=== PATIENT | male | born 1940 | race Caucasian/White ===

== ENCOUNTER 2019-05-24 13:40 | Inpatient (IN) | payer MEDICARE, OTHER ==
[~2019-05-24] VITALS: Ht 172.7 cm; Wt 70.3 kg
--- NOTE | 2019-05-24 14:21 | NUR ---
Assumed care of patient. C/O RUE weakness x 1 week. 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 Dysarthria. Able to identify watch, eye glasses, and pen. Sister at bedside said he hasn't been himself since xmas. 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 Will continue to monitor.
[2019-05-24 14:50] LABS: BASOPHILS # (AUTO) 0.02 x10^3/uL (0-0.1); BASOPHILS % (AUTO) 0 % (0-1); EOSINOPHILS # (AUTO) 0.03 x10^3/uL (0-0.4); EOSINOPHILS % (AUTO) 1 % (1-7); LYMPHOCYTES # (AUTO) 1.02 x10^3/uL (1-3.4); LYMPHOCYTES % (AUTO) 18 % (22-44); MD NO; MEAN CORPUSCULAR HEMOGLOBIN 32.6 pg (27.5-34.5); MEAN CORPUSCULAR VOLUME 98.7 fL (81-97); MEAN PLATELET VOLUME 7.9 fL (7.4-10.4); MONOCYTES # (AUTO) 0.56 x10^3/uL (0.2-0.8); MONOCYTES % (AUTO) 10 % (2-9); NEUTROPHILS # (AUTO) 4.01 x10^3/uL (1.8-6.8); NEUTROPHILS % (AUTO) 71 % (42-75); PLATELET COUNT 165 x10^3/uL (130-400); RED CELL DISTRIBUTION WIDTH 14.9 % (9.4-14.8)
[2019-05-24 14:57] LABS: INTERNATIONAL NORMALIZED RATIO 1.16 (0.93-1.1); PROTHROMBIN TIME 12.3 Seconds (9.6-11.5)
[2019-05-24 14:59] LABS: ALANINE AMINOTRANSFERASE 27 U/L (12-78); ALBUMIN 4.1 g/dL (3.4-5.0); ANION GAP 7 mmol/L (5-15); CHLORIDE 111 mmol/L (98-107); CREATININE 1.18 mg/dL (0.7-1.3)
[2019-05-24 15:01] LABS: ALKALINE PHOSPHATASE 52 U/L (45-117); BILIRUBIN,TOTAL 1.6 mg/dL (0.2-1.0)
--- NOTE | 2019-05-24 15:08 | NUR ---
BREAK RN: PT UPRIGHT ON GURNEY AWAKE & CALM, ATTEMPTING TO PROVIDED UA SAMPLE, RESPONDS APPROP TO STAFF, NAD, COMFORT MEASURES PROVIDED, AT BS, CALL LIGHT WITHIN REACH.
--- NOTE | 2019-05-24 15:32 | NUR ---
Attempted to collect UA. Patient unable to urinate.
[2019-05-24] MEDS ORDERED: BISACODYL 10 MG SUPP PR PRN (16:00)
[2019-05-24] MEDS ORDERED: OXYcodone IR 5MG TABLET PO PRN (16:00)
[2019-05-24] MEDS ORDERED: SODIUM CHLORIDE 0.9% 1,000 ML IV ONE (16:00)
[2019-05-24] MEDS ORDERED: morphine SULFATE 10 MG/ML, 1ML IVPush PRN (16:00)
[2019-05-24] MEDS ORDERED: ENALAPRILAT 1.25 MG/ML, 2ML IVPush PRN (16:00)
[2019-05-24] MEDS ORDERED: LABETALOL 5MG/ML, 20ML IVPush PRN (16:00)
[2019-05-24] MEDS ORDERED: POLYETHYLENE GLYCOL 17 GM PACKET PO PRN (16:00)
[2019-05-24] MEDS ORDERED: LEVETIRACETAM 1,000 MG in SODIUM CHLORIDE 0.9% 100 ML IV ONE (16:00)
[2019-05-24] MEDS ORDERED: ONDANSETRON 2MG/ML, 2ML IVPush PRN (16:00)
--- NOTE | 2019-05-24 16:27 | NUR ---
Neurosurgery at bedside. Sobia started.
[2019-05-24] MEDS: LEVETIRACETAM 500 MG in SODIUM CHLORIDE 0.9% 100 ML IV SCH (16:32)
--- NOTE | 2019-05-24 16:33 | NUR ---
Keppra dose verified with MD Mars (neurosurery).
[2019-05-24] MEDS: SODIUM CHLORIDE 0.9% 1,000 ML IV SCH (17:25)
--- NOTE | 2019-05-24 17:52 | NUR ---
Brother in law at bedside. Patient and brother in law demonstrate understanding of the plan. No needs at this time.
--- NOTE | 2019-05-24 18:02 | NUR ---
Iftikhar (brother in law) [phone].
--- NOTE | 2019-05-24 19:25 | NUR ---
Girlfriend at bedside. No needs at this time.
--- NOTE | 2019-05-24 19:45 | NUR ---
Transferred to CCU.
[2019-05-24 20:04] VITALS: BP 120/65
[2019-05-25] MEDS: SODIUM CHLORIDE 0.9% 1,000 ML IV SCH ×2 (03:00→20:43)
[2019-05-25 04:00] VITALS: BP 108/61
[2019-05-25] MEDS: LEVETIRACETAM 500 MG in SODIUM CHLORIDE 0.9% 100 ML IV SCH (04:22)
[2019-05-25 04:50] LABS: BASOPHILS # (AUTO) 0.01 x10^3/uL (0-0.1); BASOPHILS % (AUTO) 0 % (0-1); EOSINOPHILS # (AUTO) 0.04 x10^3/uL (0-0.4); EOSINOPHILS % (AUTO) 1 % (1-7); LYMPHOCYTES # (AUTO) 1.22 x10^3/uL (1-3.4); LYMPHOCYTES % (AUTO) 26 % (22-44); MD NO; MEAN CORPUSCULAR HEMOGLOBIN 32.6 pg (27.5-34.5); MEAN CORPUSCULAR HGB CONC 33.6 g/dL (33.2-36.2); MEAN CORPUSCULAR VOLUME 96.8 fL (81-97); MEAN PLATELET VOLUME 8.4 fL (7.4-10.4); MONOCYTES # (AUTO) 0.59 x10^3/uL (0.2-0.8); MONOCYTES % (AUTO) 13 % (2-9); NEUTROPHILS # (AUTO) 2.79 x10^3/uL (1.8-6.8); NEUTROPHILS % (AUTO) 60 % (42-75); PLATELET COUNT 149 x10^3/uL (130-400); RED BLOOD COUNT 4.41 x10^6/uL (4.38-5.82); RED CELL DISTRIBUTION WIDTH 14.9 % (9.4-14.8)
[2019-05-25 04:58] LABS: ALBUMIN 3.4 g/dL (3.4-5.0); ANION GAP 10 mmol/L (5-15); CALCIUM 7.7 mg/dL (8.5-10.1); CHLORIDE 114 mmol/L (98-107)
[2019-05-25 05:02] LABS: ALANINE AMINOTRANSFERASE 21 U/L (12-78); ALKALINE PHOSPHATASE 47 U/L (45-117); BILIRUBIN,TOTAL 1.7 mg/dL (0.2-1.0); CHOL/HDL RATIO 3.7; CHOLESTEROL, TOTAL 70 mg/dL (140-239); CREATININE 0.93 mg/dL (0.7-1.3); HDL CHOL % 27 % (26-37); HDL CHOLESTEROL (DIRECT) 19 mg/dL (40-60); LDL CHOLESTEROL,CALCULATED 40 mg/dL (54-169); LDL/HDL RATIO 2.1 (0.5-3.0); TOTAL PROTEIN 5.9 g/dL (6.4-8.2); TRIGLYCERIDES 54 mg/dL (50-200); VLDL CHOLESTEROL 11 mg/dL (0-25)
[2019-05-25] MEDS ORDERED: THROMBIN 5,000 UNIT VIAL TP ONE (06:21)
[2019-05-25] MEDS ORDERED: EPINEPHRINE 1 MG/ML, 1ML ONE (06:21)
[2019-05-25] MEDS ORDERED: BUPIVACAINE/PF 0.5% ONE (06:21)
[2019-05-25] MEDS ORDERED: BACITRACIN 50,000 UNIT ONE (06:21)
[2019-05-25] MEDS ORDERED: PHENYLEPHRINE 10 MG/ML ONE (06:29)
[2019-05-25] MEDS ORDERED: FENTANYL PF 250 MCG/5ML ONE (06:32)
[2019-05-25] MEDS ORDERED: MANNITOL PMX 20% 0 ML ONE (06:50)
[2019-05-25] MEDS ORDERED: FENTANYL PF 100 MCG/2ML IV PRN (07:00)
[2019-05-25] MEDS ORDERED: OXYcodone 5 MG/5 ML ORAL.SOL UDC PO PRN (07:00)
[2019-05-25] MEDS ORDERED: ONDANSETRON 2MG/ML, 2ML IV PRN (07:00)
[2019-05-25] MEDS ORDERED: MEPERIDINE/PF 25MG/ML,1ML IVPush PRN (07:00)
[2019-05-25] MEDS ORDERED: LABETALOL 5MG/ML, 20ML IV PRN (07:00)
[2019-05-25] MEDS ORDERED: HYDROmorphone 2 MG/ML, 1ML IVPush PRN (07:00)
[2019-05-25] MEDS ORDERED: MORPHINE SULFATE 4 MG/ML, 1ML IVPush PRN (07:00)
[2019-05-25] MEDS ORDERED: hydrALAzine 20 MG/ML, 1ML IV PRN (07:00)
[2019-05-25] MEDS ORDERED: GLYCOPYRROLATE 0.2MG/1ML, 5ML ONE (07:34)
[2019-05-25] MEDS ORDERED: NEOSTIGMINE 1 MG/ML, 10ML ONE (07:34)
[2019-05-25] MEDS ORDERED: PROPOFOL 10 MG/ML, 20ML ONE (07:34)
[2019-05-25] MEDS ORDERED: EPHEDRINE 50 MG/ML, 1ML ONE (07:34)
[2019-05-25] MEDS ORDERED: CEFAZOLIN 1,000 MG ONE (07:34)
[2019-05-25] MEDS ORDERED: ROCURONIUM 10MG/ML,5ML ONE (07:34)
[2019-05-25] MEDS ORDERED: BACITRACIN OINT 500U/GM, 15 GM ONE (08:22)
[2019-05-25] MEDS ORDERED: HOLD MEDICATION MC PRN (08:30)
[2019-05-25] MEDS: SENNA/DOCUSATE TABLET PO SCH (09:00)
[2019-05-25] MEDS ORDERED: LEVETIRACETAM 500 MG in SODIUM CHLORIDE 0.9% 100 ML IV SCH (10:30)
[2019-05-25] MEDS: LEVETIRACETAM 500 MG TABLET PO SCH (14:16)
[2019-05-25 14:40] LABS: MICROSCOPIC NOT IND
[2019-05-25 14:45] LABS: CULTURE INDICATED? NO
[2019-05-26 04:00] VITALS: BP 136/69
[2019-05-26] MEDS: LEVETIRACETAM 500 MG TABLET PO SCH ×2 (05:20→16:07)
[2019-05-26] MEDS: SODIUM CHLORIDE 0.9% 1,000 ML IV SCH ×2 (07:00→17:00)
[2019-05-26] MEDS: SENNA/DOCUSATE TABLET PO SCH (14:20)
[2019-05-26] MEDS ORDERED: ENALAPRILAT 1.25 MG/ML, 2ML IVPush PRN (19:30)
[2019-05-26] MEDS ORDERED: LABETALOL 5MG/ML, 20ML IVPush PRN (19:30)
[2019-05-27 04:00] VITALS: BP 137/76
[2019-05-27 04:28] LABS: BASOPHILS # (AUTO) 0.02 x10^3/uL (0-0.1); BASOPHILS % (AUTO) 0 % (0-1); EOSINOPHILS # (AUTO) 0.04 x10^3/uL (0-0.4); EOSINOPHILS % (AUTO) 1 % (1-7); LYMPHOCYTES # (AUTO) 1.07 x10^3/uL (1-3.4); LYMPHOCYTES % (AUTO) 16 % (22-44); MD NO; MEAN CORPUSCULAR HEMOGLOBIN 32.9 pg (27.5-34.5); MEAN CORPUSCULAR HGB CONC 34.5 g/dL (33.2-36.2); MEAN CORPUSCULAR VOLUME 95.3 fL (81-97); MEAN PLATELET VOLUME 8.4 fL (7.4-10.4); MONOCYTES # (AUTO) 0.65 x10^3/uL (0.2-0.8); MONOCYTES % (AUTO) 10 % (2-9); NEUTROPHILS # (AUTO) 4.76 x10^3/uL (1.8-6.8); NEUTROPHILS % (AUTO) 73 % (42-75); PLATELET COUNT 137 x10^3/uL (130-400); RED BLOOD COUNT 4.22 x10^6/uL (4.38-5.82); RED CELL DISTRIBUTION WIDTH 14.7 % (9.4-14.8)
[2019-05-27] MEDS: LEVETIRACETAM 500 MG TABLET PO SCH ×2 (04:32→16:21)
[2019-05-27] MEDS: ACETAMINOPHEN 325 MG TABLET PO PRN ×2 (04:32→22:36)
[2019-05-27 04:37] LABS: ALBUMIN 3.3 g/dL (3.4-5.0); ANION GAP 7 mmol/L (5-15); CALCIUM 8.1 mg/dL (8.5-10.1); CHLORIDE 110 mmol/L (98-107)
[2019-05-27 04:41] LABS: ALANINE AMINOTRANSFERASE 18 U/L (12-78); ALKALINE PHOSPHATASE 44 U/L (45-117); BILIRUBIN,TOTAL 1.3 mg/dL (0.2-1.0); CREATININE 0.82 mg/dL (0.7-1.3)
[2019-05-27 05:34] VITALS: BP 123/73
[2019-05-27 09:40] VITALS: BP 113/70
[2019-05-27] MEDS: SENNA/DOCUSATE TABLET PO SCH (09:45)
[2019-05-27 11:31] VITALS: BP 100/65
[2019-05-27 16:22] VITALS: BP 104/55
[2019-05-27 20:53] VITALS: BP 104/56
[2019-05-28 02:14] VITALS: BP 116/61
[2019-05-28] MEDS: LEVETIRACETAM 500 MG TABLET PO SCH ×2 (05:16→17:04)
[2019-05-28 07:48] VITALS: BP 103/61
[2019-05-28] MEDS: HEPARIN 5,000 UNITS/ML, 1ML SQ SCH ×3 (10:01→22:59)
[2019-05-28] MEDS: SENNA/DOCUSATE TABLET PO SCH (10:01)
[2019-05-28 13:02] VITALS: BP 124/73
[2019-05-28] MEDS: ACETAMINOPHEN 325 MG TABLET PO PRN (18:23)
[2019-05-28 20:46] VITALS: BP 115/65
[2019-05-29 02:09] VITALS: BP 123/73
[2019-05-29] MEDS: LEVETIRACETAM 500 MG TABLET PO SCH ×2 (03:49→16:31)
[2019-05-29 06:25] VITALS: BP 115/71
[2019-05-29 06:31] LABS: BASOPHILS # (AUTO) 0.01 x10^3/uL (0-0.1); BASOPHILS % (AUTO) 0 % (0-1); EOSINOPHILS # (AUTO) 0.04 x10^3/uL (0-0.4); EOSINOPHILS % (AUTO) 1 % (1-7); LYMPHOCYTES # (AUTO) 1.51 x10^3/uL (1-3.4); LYMPHOCYTES % (AUTO) 28 % (22-44); MD NO; MEAN CORPUSCULAR HGB CONC 33.6 g/dL (33.2-36.2); MEAN CORPUSCULAR VOLUME 98.2 fL (81-97); MEAN PLATELET VOLUME 8.6 fL (7.4-10.4); MONOCYTES # (AUTO) 0.56 x10^3/uL (0.2-0.8); MONOCYTES % (AUTO) 10 % (2-9); NEUTROPHILS # (AUTO) 3.28 x10^3/uL (1.8-6.8); NEUTROPHILS % (AUTO) 61 % (42-75); PLATELET COUNT 157 x10^3/uL (130-400); RED CELL DISTRIBUTION WIDTH 15.4 % (9.4-14.8)
[2019-05-29 06:51] LABS: ALBUMIN 3.1 g/dL (3.4-5.0); ANION GAP 5 mmol/L (5-15); CALCIUM 8.3 mg/dL (8.5-10.1); CHLORIDE 109 mmol/L (98-107)
[2019-05-29 06:56] LABS: ALANINE AMINOTRANSFERASE 17 U/L (12-78); ALKALINE PHOSPHATASE 40 U/L (45-117); CREATININE 0.86 mg/dL (0.7-1.3); TOTAL PROTEIN 5.9 g/dL (6.4-8.2)
[2019-05-29] MEDS: SENNA/DOCUSATE TABLET PO SCH (08:28)
[2019-05-29] MEDS: HEPARIN 5,000 UNITS/ML, 1ML SQ SCH ×2 (08:28→16:33)
[2019-05-29 12:10] VITALS: BP 107/66
[2019-05-29 19:13] VITALS: BP 127/70
[2019-05-30] MEDS: HEPARIN 5,000 UNITS/ML, 1ML SQ SCH ×2 (01:03→08:41)
[2019-05-30 01:08] VITALS: BP 118/72
[2019-05-30] MEDS: LEVETIRACETAM 500 MG TABLET PO SCH (04:05)
[2019-05-30 06:57] VITALS: BP 125/75
[2019-05-30] MEDS: SENNA/DOCUSATE TABLET PO SCH (08:48)
[2019-05-30] MEDS ORDERED: LEVE500T53 PO (11:09)
== END 2019-05-30 13:40 | disposition home health service (06) | DRG 26 ==
LOC: ED 15:55 → EDIP 15:56 → ED 16:39 → CCU 19:46 → 4WST 05-27 05:07 → DCLOUNGE 05-30 13:27
PROVIDERS: ADMIT Internal Medicine; ATTEND Family Medicine
PROC: 00U20KZ Supplement Dura Mater with Nonautologous Tissue Substitute, Open Approach (ICD-10-PCS; 2019-05-25)
PROC: 009400Z Drainage of Intracranial Subdural Space with Drainage Device, Open Approach (ICD-10-PCS; 2019-05-25)
PROC: 00C40ZZ Extirpation of Matter from Intracranial Subdural Space, Open Approach (ICD-10-PCS; principal; 2019-05-25 07:00)
DX: I62.01 Nontraumatic acute subdural hemorrhage (principal); G81.91 Hemiplegia, unspecified affecting right dominant side; R47.01 Aphasia; G93.89 Other specified disorders of brain; I10 Essential (primary) hypertension; Z79.899 Other long term (current) drug therapy
CPT/HCPCS: 36415; 70450; 80053; 80061; 81003; 84443; 85025; 85610; 85730; 87081; 93005; 96365; C1713; C1729; G0378; J0171; J0690; J1644; J1953; J2704; J2710; J3010; 92523-GN; C1781; J2370; J7030

== ENCOUNTER → 2019-06-05 | Outpatient (CLI) | payer MEDICARE, OTHER ==
[~2019-06-05] MED LIST: LEVE500T53 PO
== END | disposition home or self-care (01) ==
LOC: CFH 12:16
PROVIDERS: ATTEND Neurological Surgery
DX: I62.01 Nontraumatic acute subdural hemorrhage (principal); G93.89 Other specified disorders of brain
CPT/HCPCS: 70450

== ENCOUNTER → 2019-07-31 | Outpatient (CLI) | payer MEDICARE, OTHER ==
[~2019-07-31] MED LIST changes: +ACET325T26 PO; +DIPH25CA26 PO; +ERGO500017 PO; +ERTA1VIA IV; +GADOTERATE 7.5 MMOL/15 ML SYR ONE; +NYST1000 PO; +SENN-193 PO; +TAMS-11 PO
== END | disposition home or self-care (01) ==
LOC: RAD 08:28
PROVIDERS: ATTEND Neurological Surgery
DX: T81.40XD Infection following a procedure, unspecified, subsequent encounter (principal); Y83.8 Other surgical procedures as the cause of abnormal reaction of the patient, or of later complication, without mention of misadventure at the time of the procedure
CPT/HCPCS: 70553; A9575